=== PATIENT | female | born 1970 | race Caucasian/White ===

== ENCOUNTER 2019-08-08 04:25 | Emergency (ER) | payer OTHER ==
[~2019-08-08] VITALS: Ht 175.3 cm; Wt 95.3 kg
[2019-08-08 05:08] LABS: ABSOLUTE NEUTROPHILS 9.4 thou/uL (1.4-8.2); BASOPHILS 0.4 % (0.0-2.0); EOSINOPHILS 0.6 % (0.0-3.0); HEMATOCRIT 42.3 % (37.0-47.0); HEMOGLOBIN 14.1 gm/dL (12.0-15.0); LYMPHOCYTES 16.3 % (24.0-44.0); MCH 31.4 pg (26.0-34.0); MCHC 33.4 g/dL (28.0-37.0); MCV 93.9 fL (80.0-100.0); PLATELET COUNT 236 thou/uL (150-400); POLYS 77.7 % (36.0-66.0); RBC 4.51 mil/uL (4.20-5.00); RDW 12.7 % (10.5-14.5); WBC 12.1 thou/uL (4.0-11.0)
[2019-08-08 05:11] LABS: ANION GAP 10 mmol/L (7-16); BUN 18 mg/dL (7-18); CALCIUM 9.3 mg/dL (8.5-10.1); CHLORIDE 101 mmol/L (98-107); CO2 26 mmol/L (21-32); GLUCOSE 146 mg/dL (74-106); POTASSIUM 3.5 mmol/L (3.5-5.1); SODIUM 137 mmol/L (136-145)
[2019-08-08 05:17] LABS: ALBUMIN 3.9 g/dL (3.4-5.0); DIRECT BILIRUBIN < 0.1 mg/dL (<0.1-0.3); LIPASE 137 U/L (73-393); SGOT 11 U/L (15-37); SGPT 13 U/L (30-65); TOTAL BILIRUBIN 0.3 mg/dL (<0.1-1.0); TOTAL PROTEIN 7.4 g/dL (6.4-8.2)
[2019-08-08] MEDS ORDERED: SPIRONOLACTONE50 MG PO (05:28)
[2019-08-08] MEDS ORDERED: DOXYCYCLINE 10100 M2 PO (05:29)
[2019-08-08] MEDS ORDERED: ROXICODONE5 M2 PO (07:09)
[2019-08-08 07:24] VITALS: BP 127/67
[2019-08-08 07:32] LABS: URINE BILIRUBIN NEGATIVE (Negative); URINE BLOOD NEGATIVE (Negative); URINE COLOR YELLOW; URINE GLUCOSE-RANDOM* NEGATIVE (Negative); URINE KETONES NEGATIVE (Negative); URINE LEUKOCYTES-REFLEX NEGATIVE (Negative); URINE NITRITE-REFLEX NEGATIVE (Negative); URINE PROTEIN (DIPSTICK) NEGATIVE (Negative); URINE SPECIFIC GRAVITY >= 1.030 (1.005-1.035); URINE UROBILINOGEN 0.2 E.U./dl (0.2-1.0)
[2019-08-08 07:33] LABS: URINE CLARITY CLOUDY
--- NOTE | 2019-08-09 07:54 | EKG ---
[address] [place] [place] [address] ELECTROCARDIOGRAM REPORT Name: NOGUEIRASERGEY Room #: [facility] [id number] Admission: 08/08/19 Attend Phys: Discharge: 08/08/19 Date of : 72 Report #: [id number] THIS REPORT FOR: //name// [facility] ED Test Date: 2019-08-08 Test Time: 04:42:48 Pat Name: SERGEY NOGUEIRA Department: Room: Gender: F Deputy Sheriff Bailiff: [email or web address] : 1970 Requested By: Grace Mendez Order Number: [id number] MD: Suleiman Forman Measurements Intervals [place] Rate: 59 P: -16 NE: 176 QRS: 3 QRSD: 109 T: 14 QT: 447 QTc: 443 Interpretive Statements Sinus bradycardia Otherwise normal tracing No previous ECG available for comparison Electronically Signed On 08-09-2019 7:54:42 DEPUTY MANAGER by Suleiman Forman [email or web address] <ELECTRONICALLY SIGNED> By: Suleiman Forman MD, [facility] 08/09/19 [id number] Suleiman Forman MD, FACC /EPI
== END 2019-08-08 07:24 | disposition home or self-care (01) ==
LOC: ER 04:25
PROVIDERS: Emergency Medicine
DX: K80.50 Calculus of bile duct without cholangitis or cholecystitis without obstruction (principal); R11.2 Nausea with vomiting, unspecified